=== PATIENT | male | born 1945 | race Caucasian/White ===

== ENCOUNTER → 2023-03-28 | Outpatient (RCR) | payer MEDICARE, BC ==
[~2023-03-28] MED LIST: SEROQUEL 2525 MG/TAB PO
== END | disposition home or self-care (01) ==
LOC: WSST → MKS.ESL.OT 02-27 13:38 → WSST 03-05 13:00 → MKS.ESL.PT 03-07 15:15 → WSST 03-12 13:00
DX: Z48.811 Encounter for surgical aftercare following surgery on the nervous system (principal); Z98.890 Other specified postprocedural states